=== PATIENT | female | born 2000 | race Caucasian/White ===

== ENCOUNTER 2023-12-20 19:43 | Emergency (ER) | payer MEDICAID, SELFPAY ==
[2023-12-20 19:48] VITALS: BP 112/64; PULSE 79; RESP 12; TEMP 36.6; O2SAT 97
--- NOTE | 2023-12-20 20:00 | DI.CT_ITS ---
Exam(s) CT ABDOMEN PELVIS W EXAM: CT ABDOMEN PELVIS W CLINICAL HISTORY: RLQ pain. TECHNIQUE: Imaging Protocol: Axial computed tomography images with coronal and sagittal reformatted images were created and reviewed CONTRAST MATERIAL: Intravenous: Omnipaque 350 Contrast volume:65 ml Oral: no COMPARISON: No exams were available for comparison FINDINGS: ABDOMEN and PELVIS: The the exam is limited by lack of intra-abdominal fat and oral contrast. Lung Bases: No acute findings. Liver: Normal density. No suspicious mass. Gallbladder and biliary tract: No radiodense calculus. No biliary dilation. Pancreas: Normal density. No abnormal calcifications or inflammatory process. No evidence of mass. Spleen: Normal. Kidneys: Normal size, contour and axis. No radiodense stones. No obstructive uropathy. No suspicious masses seen. Adrenal glands: No masses seen. Vasculature: Abdominal aorta non-dilated. Soft tissues: Unremarkable. Bladder: Nearly empty. No gross wall thickening. No calculi.No focal mass. Bowel: No obstruction. No bowel wall thickening. Appendix normal. Moderate quantity of stool. Peritoneal cavity: No ascites. No focal collection. No mesenteric inflammatory response. Bones: Unremarkable for age. Reproductive organs: Unremarkable. Lymph nodes: No pathologically enlarged lymph nodes. IMPRESSION:: No acute abnormality in the abdomen or pelvis. No evidence of appendicitis. RADIATION DOSE DELIVERED: 137.34mGy.cm Total DLP DATA REPOSITORY: All CT scans at this facility are submitted to the National Radiology Data Registry (NRDR) Dose Index Registry (DIR) with the [employer] ([employer]). RADIATION OPTIMIZATION: All CT scans at this facility use at least one of these dose optimization te chniques: automated exposure control; mA and/or kV adjustment per patient size (includes targeted exa ms where dose is matched to clinical indication); or iterative reconstruction.
[2023-12-20 20:17] LABS: Bilirubin Negative (Negative); Blood Negative (Negative); Clarity Clear (Clear); Glucose Negative (Negative); Ketones >=160 mg/dL (Negative); Leukocyte Esterase Negative (Negative); Nitrite Negative (Negative); Specific Gravity >= 1.030 (1.005-1.025); Urobilinogen 0.2 mg/dL (Up to 0.2); pH 6.5 (5-8)
[2023-12-20] MEDS: Omnipaque 350 MG/ML 100 ML BTL IJ (20:48)
[2023-12-20] MEDS: Normal Saline - Diluent 50 ML VIAL IJ (20:50)
[2023-12-20] MEDS: Normal Saline Flush 10 ML SYR IVP (20:51)
[2023-12-20] MEDS: Normal Saline 1,000 ML 1000 ML IV (20:52)
[2023-12-20] MEDS: ACETAMINOPHEN 1,000 MG/100 ML BTL 400 MG IVPB (21:03)
[2023-12-20 21:16] LABS: Abs Immature Grans 0.01 10^3/uL (0.0-0.06); Absolute Basophil Count 0.07 10^3/uL (0.0-0.2); Absolute Eosinophil Count 0.04 10^3/uL (0.0-0.7); Absolute Lymphocyte Count 3.22 10^3/uL (1.2-3.4); Absolute Monocyte Count 0.42 10^3/uL (0.1-0.8); Absolute Neutrophil Count 4.02 10^3/uL (1.2-6.7); Basophils % 0.9 %; Eosinophils % 0.5 %; HGB 12.4 g/dL (11.2-15.7); Immature Grans % 0.1 %; Lymphocytes % 41.4 %; MCH 30.7 pg (27.0-33.0); MCHC 33.5 % (32.0-36.0); MCV 92 fL (80-95); Monocytes % 5.4 %; Neutrophils % 51.7 %; Platelet Count 252 10^3/uL (130-400); RBC 4.04 10^6/uL (3.93-5.22); RDW 13.1 % (11.7-14.6); RDW-SD 44.4 fL; WBC 7.78 10^3/uL (4.4-10.8)
[2023-12-20 21:22] LABS: ALT 21 U/L (14-59); AST 20 U/L (15-37); Alkaline Phosphatase 56 U/L (46-116); Anion Gap 9.7 mmol/L (3-11); BUN 13 mg/dL (7-18); Bilirubin, Total 0.55 mg/dL (0.2-1.0); CO2 27.3 mmol/L (21.0-32.0); CREATININE 0.8 mg/dL (0.55-1.02); Calcium 8.9 mg/dL (8.5-10.1); Chloride 100 mmol/L (98-107); Estimated GFR 106.11 (mL/min/1.73m2); Glucose 84 mg/dL (74-106); Potassium 3.5 mmol/L (3.5-5.1); Sodium 137 mmol/L (136-145); Total Protein 7.4 g/dL (6.4-8.2)
[2023-12-20 21:23] LABS: C-Reactive Protein < 0.50 mg/dL (<or=0.5)
--- NOTE | 2023-12-20 21:32 | DI.VRAD_ITS ---
PROCEDURE INFORMATION: Exam: CT Abdomen And Pelvis With Contrast Exam date and time: 12/20/2023 8:47 PM Age: 23 years old Clinical indication: Abdominal pain; Localized; Right lower quadrant (rlq); Patient HX: Rlq pain TECHNIQUE: Imaging protocol: Computed tomography of the abdomen and pelvis with contrast. Radiation optimization: All CT scans at this facility use at least one of these dose optimization techniques: automated exposure control; mA and/or kV adjustment per patient size (includes targeted exams where dose is matched to clinical indication); or iterative reconstruction. Contrast material: OMNIPAQUE 350; Contrast volume: 65 ml; Contrast route: INTRAVENOUS (IV); COMPARISON: No relevant prior studies available. FINDINGS: Limitations: Paucity of intra-abdominal fat. Lungs: Lung bases clear. Liver: Normal appearing liver. Gallbladder and biliary ducts: Gallbladder partially collapsed. No calcified gallstones seen. No biliary dilatation. Pancreas: Normal appearing pancreas. Spleen: Normal appearing spleen. Adrenal glands: Adrenal glands partially obscured but grossly unremarkable, as seen. Kidneys and ureters: Normal appearing kidneys. No hydronephrosis. Stomach and bowel: No oral contrast. Stomach partially decompressed. No small bowel dilatation to suggest obstruction. Moderate retained fecal material throughout the colon. No evidence of diverticulitis or colitis. Rectum moderately distended with gas and fecal material. Appendix: Appendix partially obscured but normal in caliber and appearance through its visualized portion. Intraperitoneal space: No gross ascites or free air. Vasculature: Normal caliber abdominal aorta. Lymph nodes: No pathologically enlarged mesenteric, retroperitoneal, or pelvic sidewall lymph nodes. Urinary bladder: Urinary bladder partially collapsed but grossly unremarkable, as seen. Reproductive: Anteverted uterus, normal in size. Suggestion of a small uterine leiomyoma. Ovaries partially obscured and not well evaluated but symmetric and not grossly enlarged. Bones/joints: No acute fracture seen among the bones of the abdomen or pelvis. Soft tissues: No significant ventral or inguinal hernia. IMPRESSION: 1. Appendix partially obscured but normal in caliber and appearance through its visualized portion. 2. Moderate retained fecal material throughout the colon. 3. Ovaries partially obscured and not well evaluated but symmetric and normal in size. No gross free pelvic fluid demonstrated. Dictated and Authenticated by: Francis Mcgraw MD. Ordering:ALBERT Zavala MD
--- NOTE | 2023-12-20 22:29 | W.ED.GENAD ---
Discharge Plan Disposition Patient Disposition: Home Discharge Details Clinical Impression: Abdominal pain Primary Care Provider: Delmy Martinez ED Provider: Sally Braxton Home Meds and New Rx's Prescriptions: No Action No Known Home Meds Discharge Instructions Instructions: Constipation, Adult ED Additional Instructions: Start taking MiraLAX tomorrow and continue to take until you have a bowel movements Take senna, 2 to 4 tablets daily do not take more than 4 tablets a day, may continue until you have a bowel movement Recommend drinking prune juice or eating prunes during your menses Metamucil or increase fiber in your diet At least eight 8 ounce glasses of water daily Warm water bottle Motrin Tylenol as needed for pain Please return in 24 hours for reassessment should your pain worsen or persist Stand Alone Forms: Work Release Referrals: Delmy Martinez NP [Primary Care Provider] - 2 days Discharge Data Discharge Date/Time-TO BE ENTERED AT DEPARTURE: 12/20/23 22:42 HPI General Date/Time Provider Initiated Documentation: 12/20/23 19:46. HPI Narrative: 23-year-old female presenting with abdominal pain over the course of the past few days. Difficulty with bowel movements. Denies any fever or chills. Denies nausea or vomiting. Took a laxative yesterday without relief in pain. Denies any risk of STDs, sexually active and monogamous for 6 years. Denies any vaginal discharge. Related Data Home Medications ?Medication ?Instructions ?Recorded ?Confirmed Unknown [No Known Home Meds] 10/13/23 12/20/23 Allergies Allergy/AdvReac Type Severity Reaction Status Date / Time No Known Allergies Allergy Verified 12/20/23 19:52 General Stated Complaint: Abd Prob JAYLENE: 3 Exam Narrative Exam Narrative: Alert and oriented, pupils equal round reactive to light and accommodation, lungs clear to auscultation, cardiac rate rhythm regular, right lower quadrant tenderness on palpation, no rebound or guarding, no CVA tenderness Course Vital Signs Vital signs: Vital Signs Temperature 36.6 C 12/20/23 19:48 Pulse 79 12/20/23 19:48 Respiratory Rate 12 12/20/23 19:48 Blood Pressure 112/64 12/20/23 19:48 Pulse Oximetry 97 12/20/23 19:48 Temperature 36.6 C 12/20/23 19:48 Temperature Source Oral 12/20/23 19:48 Pulse 79 12/20/23 19:48 Respiratory Rate 12 12/20/23 19:48 Respiratory Effort Normal 12/20/23 19:52 Blood Pressure 112/64 12/20/23 19:48 Pulse Oximetry 97 12/20/23 19:48 Oxygen Delivery Method Room Air 12/20/23 19:48 Oxygen Flow Rate 0 12/20/23 19:48 Pain Level 5 12/20/23 19:48 Lab/Test Results Lab/Test Results: Laboratory Tests Range/Units 12/20/23 12/20/23 12/20/23 19:55 19:59 20:45 WBC (4.4-10.8) 10^3/uL RBC (3.93-5.22) 10^6/uL Hgb (11.2-15.7) g/dL Hct (36.0-46.0) % MCV (80-95) fL MCH (27.0-33.0) pg MCHC (32.0-36.0) % RDW (11.7-14.6) % Plt Count (130-400) 10^3/uL MPV (8.0-11.0) fL Immature Gran % % Neutrophils % % Lymphocytes % % Monocytes % % Eosinophils % % Basophils % % Nucleated RBC % (0.0-0.3) % Absolute Neutrophils (1.2-6.7) 10^3/uL Absolute Lymphocytes (1.2-3.4) 10^3/uL Absolute Monocytes (0.1-0.8) 10^3/uL Absolute Eosinophils (0.0-0.7) 10^3/uL Absolute Basophils (0.0-0.2) 10^3/uL Sodium (136-145) mmol/L 137 Potassium (3.5-5.1) mmol/L 3.5 Chloride (98-107) mmol/L 100 Carbon Dioxide (21.0-32.0) mmol/L 27.3 Anion Gap (3-11) mmol/L 9.7 BUN (7-18) mg/dL 13 Creatinine (0.55-1.02) mg/dL 0.8 Est GFR (CKD-EPI 2020) (mL/min/1.73m2) 106.11 Glucose (74-106) mg/dL 84 Calcium (8.5-10.1) mg/dL 8.9 Total Bilirubin (0.2-1.0) mg/dL 0.55 AST (15-37) U/L 20 ALT (14-59) U/L 21 Alkaline Phosphatase (46-116) U/L 56 C-Reactive Protein (<or=0.5) mg/dL < 0.50 Total Protein (6.4-8.2) g/dL 7.4 Albumin (3.4-5.0) g/dL 4.0 Urine Color (Yellow) Yellow Cancelled Urine Clarity (Clear) Clear Cancelled Urine pH (5-8) 6.5 Cancelled Ur Specific Ages [place] (1.005-1.025) >= 1.030 H Cancelled Urine Protein (Neg-Trace) mg/dL Negative Cancelled Urine Ketones (Negative) mg/dL >=160 H Cancelled Urine Blood (Negative) Negative Cancelled Urine Nitrite (Negative) Negative Cancelled Urine Bilirubin (Negative) Negative Cancelled Urine Urobilinogen (Up to 0.2) mg/dL 0.2 Cancelled Ur Leukocyte Esterase (Negative) Negative Cancelled Urine Glucose (Negative) mg/dL Negative Cancelled Range/Units 12/20/23 21:10 WBC (4.4-10.8) 10^3/uL 7.78 RBC (3.93-5.22) 10^6/uL 4.04 Hgb (11.2-15.7) g/dL 12.4 Hct (36.0-46.0) % 37.0 MCV (80-95) fL 92 MCH (27.0-33.0) pg 30.7 MCHC (32.0-36.0) % 33.5 RDW (11.7-14.6) % 13.1 Plt Count (130-400) 10^3/uL 252 MPV (8.0-11.0) fL 10.0 Immature Gran % % 0.1 Neutrophils % % 51.7 Lymphocytes % % 41.4 Monocytes % % 5.4 Eosinophils % % 0.5 Basophils % % 0.9 Nucleated RBC % (0.0-0.3) % 0.0 Absolute Neutrophils (1.2-6.7) 10^3/uL 4.02 Absolute Lymphocytes (1.2-3.4) 10^3/uL 3.22 Absolute Monocytes (0.1-0.8) 10^3/uL 0.42 Absolute Eosinophils (0.0-0.7) 10^3/uL 0.04 Absolute Basophils (0.0-0.2) 10^3/uL 0.07 Sodium (136-145) mmol/L Potassium (3.5-5.1) mmol/L Chloride (98-107) mmol/L Carbon Dioxide (21.0-32.0) mmol/L Anion Gap (3-11) mmol/L BUN (7-18) mg/dL Creatinine (0.55-1.02) mg/dL Est GFR (CKD-EPI 2020) (mL/min/1.73m2) Glucose (74-106) mg/dL Calcium (8.5-10.1) mg/dL Total Bilirubin (0.2-1.0) mg/dL AST (15-37) U/L ALT (14-59) U/L Alkaline Phosphatase (46-116) U/L C-Reactive Protein (<or=0.5) mg/dL Total Protein (6.4-8.2) g/dL Albumin (3.4-5.0) g/dL Urine Color (Yellow) Urine Clarity (Clear) Urine pH (5-8) Ur Specific Ages [place] (1.005-1.025) Urine Protein (Neg-Trace) mg/dL Urine Ketones (Negative) mg/dL Urine Blood (Negative) Urine Nitrite (Negative) Urine Bilirubin (Negative) Urine Urobilinogen (Up to 0.2) mg/dL Ur Leukocyte Esterase (Negative) Urine Glucose (Negative) mg/dL POC Urine Test Start: 12/20/23 19:54 Freq: .Urine Test Status: Complete Protocol: Document 12/20/23 20:00 ROSA (Rec: 12/20/23 20:00 ROSA [id number]) Test(Urine)-POC POC- Test(urine) Negative POC- Test(urine) Negative Medical Decision Making 23-year-old female presenting with abdominal pain, right lower quadrant, exam with exquisite pain in the right lower quadrant, no rebound or guarding. CT was ordered to evaluate for appendicitis, CT does not show evidence of definitive appendicitis, large volume of stool predominantly in the colon per radiology interpretation my review. Urinalysis and negative, patient states she is quite low risk for STDs as she is sexually active and monogamous. Feeling mild improvement in symptoms after fluids and Tylenol. Encouraged on a, MiraLAX, and fluids at home with reassessment Quality:SDOH Health Related Social Needs: No Data to Display PFSH All Active Problems (Updated 12/20/23 @ 22:32 by GEORGES Stubbs) Abdominal pain (Acute) Chronic headaches (Acute) Medical History (Updated 12/20/23 @ 22:32 by GEORGES Stubbs) Depression Family History (Updated 12/04/23 @ 10:40 by Christelle Wynne) Mother Cancer Lung Maternal Grandfather Cancer Lung Maternal Grandmother Cancer Lung Social History (Updated 12/04/23 @ 10:40 by Christelle Wynne) Smoking/Tobacco Use Status: Never Smoking risk assessment performed?: Yes Drug use: Daily Substance use type: marijuana Housing: house Do you feel safe at home: Yes Do you feel safe in your relationship?: Yes
[2023-12-20 22:42] VITALS: BP 113/72; PULSE 68; RESP 20; TEMP 36.7; O2SAT 100
== END 2023-12-20 22:42 | disposition home or self-care (01) ==
PROVIDERS: Emergency Medicine; Emergency Provider Physician Assistant; PCP Nurse Practitioner Family
DX: R10.31 Right lower quadrant pain (principal); R11.0 Nausea
CPT/HCPCS: 80053; 81025; 96374; 99285; 74177; 81003; 85025; 86140; 99283; J0131; J3490

== ENCOUNTER 2024-01-01 00:36 | Outpatient (CLI) | payer MEDICAID, SELFPAY ==
--- NOTE | 2024-01-01 07:15 | DI.US_ITS ---
Exam(s) US UPPER EXTREMITY VENOUS RT EXAM: US UPPER EXTREMITY VENOUS RT CLINICAL HISTORY: ? DVT, Phlebitis, recent IV placement,I80.9 TECHNIQUE: GRAYSCALE, COLOR, DOPPLER IMAGING OF THE VENOUS SYSTEM OF THE UPPER EXTREMITY-RIGHT COMPARISON: No exams were available for comparison FINDINGS: Basilic vein: Patent. Normal color-flow and normal compression and augmentation properties. Brachial vein(s):Patent. Normal color flow. Normal compression and augmentation properties. Cephalic vein:Patent. Normal color flow. Normal compression and augmentation properties. Axillary vein: Patent. Normal color flow. Normal compression and augmentation properties. Visualized subclavian vein: Patent. No obvious intraluminal thrombus. IMPRESSION: 1. No evidence of venous thrombosis in the RIGHT upper extremity. 2. DATA REPOSITORY:
== END 2024-01-01 00:56 ==
LOC: DI 00:36
PROVIDERS: PCP Nurse Practitioner Family; Visit Provider Physician Assistant
DX: I80.8 Phlebitis and thrombophlebitis of other sites (principal)
CPT/HCPCS: 93971